=== PATIENT | male | born 1990 | race Caucasian/White ===

== ENCOUNTER → 2018-11-14 | Emergency (ER) | payer BC ==
[~2018-11-14] VITALS: Ht 182.9 cm; Wt 90.0 kg
[~2018-11-14] MED LIST: CYCL10TA7 PO; DEXAMETHASONE 10 MG/ML 1 ML INJ IM ONE; DIAZEPAM 5 MG TAB PO ONE; HYDR-4011 PO; KETOROLAC 60 MG INJ IM STA; MED4DP PO; NAPR-985 PO
[2018-11-14 11:15] VITALS: BP 158/89; PULSE 89; RESP 18; Ht 182.9 cm; Wt 90.0 kg
--- NOTE | 2018-11-14 12:54 | ERD ---
ER Documentation Chief Complaint Chief Complaint BACK PAIN HPI 27-year-old male presenting with back pain. Patient states he was doing a deep squat yesterday at the gym and he had pain develop on his left side rating down his leg. He had this in the past. He is never had imaging done before but was told by a chiropractor he may have some lumbar problems. NKDA. Took naproxen for hours ago. Surgical history denies. Social history smokes marijuana. ROS All systems reviewed and are negative except as per history of present illness. Medications Home Meds Active Scripts Methylprednisolone* (Medrol* DOSE PACK) 4 Mg/Dose-Pack Tab.ds.pk, 4 MG PO . DIRECTED, #1 PACKET Prov:TERESA ROBLERO PA-C 11/14/18 Cyclobenzaprine Hcl* (Cyclobenzaprine Hcl*) 10 Mg Tablet, 10 MG PO TID, #15 TAB Prov:TERESA ROBLERO PA-C 11/14/18 Naproxen* (Naprosyn*) 500 Mg Tablet, 500 MG PO BID PRN for PAIN AND/OR INFLAMMATION, #30 TAB Prov:TERESA ROBLERO PA-C 11/14/18 Hydrocodone/Acetaminophen ([place] 5-325 Tablet) 1 Each Tablet, 1 TAB PO Q6H PRN for PAIN, #7 TAB Prov:TERESA ROBLERO PA-C 11/14/18 PMhx/Soc History of Surgery: Yes (dental) Anesthesia Reaction: No Hx Neurological Disorder: No Hx Respiratory Disorders: No Hx Cardiac Disorders: No Hx Psychiatric Problems: No Hx Miscellaneous Medical Probl: No Hx Alcohol Use: Yes (socially) Hx Substance Use: No Hx Tobacco Use: No Smoking Status: Never smoker FmHx Family History: No diabetes, No coronary disease, No other Physical Exam Vitals Vital Signs Date Temp Pulse Resp B/P (MAP) Pulse Ox O2 O2 Flow FiO2 Time Delivery Rate 11/14/18 97.7 89 18 158/89 99 11:15 (112) Physical Exam GENERAL: The patient is well-appearing, well-nourished, in no acute distress CHEST: Clear to auscultation bilaterally. There are no rales, wheezes or rhonchi. HEART: Regular rate and rhythm. No murmurs, clicks, rubs or gallops. BACK: Tender palpation over left paraspinous muscles extending down buttock. No midline tenderness or deformity. No bony step-offs. EXTREMITIES: Equal pulses bilaterally. There is no peripheral clubbing, cyanosis or edema. No focal swelling or erythema. Full range of motion. Grossly neurovascularly intact. NEUROLOGIC: Alert and oriented. Cranial nerves II through XII intact. Motor strength in all 4 extremities with 5 out of 5 strength. Sensation grossly intact. Normal speech and gait. Babinski negative. DTR 2+ throughout. SKIN: There is no apparent rash or petechiae. The skin is warm and dry. Results 24 hrs Current Medications Medications Dose Sig/Gwen Start Time Status Last (Trade) Ordered Route PRN Stop Time Admin Dose Reason Admin Ketorolac 60 mg ONCE STAT 11/14/18 DC 11/14/18 Tromethamine IM 11:28 11/14/18 11:33 (Toradol) 11:29 10 mg ONCE ONCE 11/14/18 DC 11/14/18 Dexamethasone IM 11:30 11/14/18 11:34 (Decadron) 11:31 Diazepam 5 mg ONCE ONCE 11/14/18 DC 11/14/18 (Valium) PO 11:30 11/14/18 11:33 11:31 Procedures/MDM ER course: Valium, Toradol and Decadron given in ED. MDM: 27-year-old male presents with back pain. I have low suspicion for acute fracture dislocation. I have low suspicion for tendon or ligament rupture. Patient likely is musculoskeletal strain and will be discharged with supportive medications. Patient is told symptoms change or worsen to return immediately to the ER. All questions answered at discharge Departure Diagnosis: Primary Impression: Back pain Condition: Stable Patient Instructions: Back Pain W/ Sciatica Referrals: [facility] Hours: Mon-Fri 9:00 AM - 5:00 PM Additional Instructions: FOLLOW UP WITH YOUR PRIMARY CARE PHYSICIAN TOMORROW.Return to this facility if you are not improving as expected. TERESA ROBLERO PA-C Nov 14, 2018 12:54
== END | disposition home or self-care (01) ==
LOC: FTE 11:11
DX: M54.9 Dorsalgia, unspecified (principal)
CPT/HCPCS: 96372; 99284; J1100; J1885